=== PATIENT | female | born 1965 | race Two or more races ===

== ENCOUNTER 2017-03-18 19:18 | Emergency (ER) | payer OTHER ==
[~2017-03-18] VITALS: Ht 162.6 cm; Wt 75.3 kg
[2017-03-18] MEDS ORDERED: ULTRACET PO (21:57)
== END 2017-03-18 22:29 | disposition home or self-care (01) ==
LOC: ER 19:18
DX: M54.5 Low back pain (principal)

== ENCOUNTER 2017-03-19 14:23 | Outpatient (CLI) | payer OTHER ==
[~2017-03-19 14:23] MED LIST: ULTRACET PO
== END 2017-03-19 14:40 | disposition home or self-care (01) ==
LOC: MRI 14:23
DX: M54.5 Low back pain (principal)
CPT/HCPCS: 72148

== ENCOUNTER 2017-07-15 15:05 | Outpatient (CLI) | payer OTHER | END 2017-07-15 15:10 | disposition home or self-care (01) | LOC: MAMO-SONO 15:05 | DX: Z12.31 Encounter for screening mammogram for malignant neoplasm of breast (principal); N60.11 Diffuse cystic mastopathy of right breast; N60.12 Diffuse cystic mastopathy of left breast ==

== ENCOUNTER 2018-08-27 07:53 | Outpatient (CLI) | payer OTHER | END 2018-08-27 08:08 | disposition home or self-care (01) | LOC: LAB 07:53 | DX: N39.0 Urinary tract infection, site not specified (principal); E55.9 Vitamin D deficiency, unspecified; E78.49 Other hyperlipidemia; E03.8 Other specified hypothyroidism ==

== ENCOUNTER 2018-08-27 08:26 | Outpatient (CLI) | payer OTHER | END 2018-08-27 08:49 | disposition home or self-care (01) | LOC: MAMO-SONO 08:26 | DX: G93.5 Compression of brain (principal); Z12.31 Encounter for screening mammogram for malignant neoplasm of breast | CPT/HCPCS: 70551 ==

== ENCOUNTER 2018-10-30 10:42 | Emergency (ER) | payer OTHER ==
[~2018-10-30] VITALS: Ht 160 cm; Wt 68.9 kg
== END 2018-10-30 14:42 | disposition home or self-care (01) ==
LOC: ER 10:42
DX: M54.2 Cervicalgia (principal)

== ENCOUNTER 2019-12-14 08:37 | Outpatient (CLI) | payer OTHER | END 2019-12-14 08:42 | disposition home or self-care (01) | LOC: MAMO-SONO 08:37 | DX: Z12.31 Encounter for screening mammogram for malignant neoplasm of breast (principal); N60.21 Fibroadenosis of right breast; N60.22 Fibroadenosis of left breast ==

== ENCOUNTER 2022-01-18 11:00 | Outpatient (CLI) | payer OTHER | END 2022-01-18 11:05 | disposition home or self-care (01) | LOC: MAMO-SONO 11:00 | DX: N60.09 Solitary cyst of unspecified breast (principal) ==

== ENCOUNTER 2022-01-18 11:25 | Outpatient (CLI) | payer OTHER | END 2022-01-18 11:26 | disposition home or self-care (01) | LOC: LAB 11:25 | DX: E11.9 Type 2 diabetes mellitus without complications (principal); I11.9 Hypertensive heart disease without heart failure; D64.9 Anemia, unspecified; E55.9 Vitamin D deficiency, unspecified; E78.00 Pure hypercholesterolemia, unspecified; E03.9 Hypothyroidism, unspecified; Z12.11 Encounter for screening for malignant neoplasm of colon; N39.0 Urinary tract infection, site not specified ==

== ENCOUNTER 2023-03-28 08:07 | Outpatient (CLI) | payer OTHER | END 2023-03-28 08:20 | disposition home or self-care (01) | LOC: MAMO-SONO 08:07 | DX: N60.11 Diffuse cystic mastopathy of right breast (principal); N60.12 Diffuse cystic mastopathy of left breast; Z12.39 Encounter for other screening for malignant neoplasm of breast; Z12.31 Encounter for screening mammogram for malignant neoplasm of breast ==

== ENCOUNTER 2024-04-16 08:19 | Outpatient (CLI) | payer OTHER | END 2024-04-16 08:26 | disposition home or self-care (01) | LOC: MAMO-SONO 08:19 | PROVIDERS: ATTEND Obstetrics & Gynecology | DX: N60.11 Diffuse cystic mastopathy of right breast (principal); N60.12 Diffuse cystic mastopathy of left breast; Z12.31 Encounter for screening mammogram for malignant neoplasm of breast; Z12.39 Encounter for other screening for malignant neoplasm of breast ==

== ENCOUNTER → 2024-06-26 12:41 | Outpatient (CLI) | payer OTHER ==
[2024-06-26 14:08] LABS: HEMATOCRIT 37.1 % (36.0-45.00); HEMOGLOBIN 12.5 g/dL (12.0-15.00); MEAN CELL VOLUME 87.7 fL (80.00-100.00); MEAN CORPUSCULAR HEMOGLOBIN 29.6 pg (27.00-32.0); MEAN CORPUSCULAR HGB CONC 33.7 g/dl (32.0-36.0); PLATELET COUNT 333 K/uL (150-450); RED BLOOD COUNT 4.23 M/uL (4.00-6.00)
[2024-06-26 14:09] LABS: PH,URINE 6.5 (5.0-8.0); URINE APPEARANCE Clear; URINE BILIRRUBIN Negative (NEGATIVE); URINE BLOOD Negative; URINE COLOR Yellow; URINE GLUCOSE Negative (NEGATIVE); URINE KETONE Negative (NEGATIVE); URINE LEUKOCYTE Negative; URINE NITRATE Negative; URINE PROTEIN Negative (NEGATIVE); URINE UROBILINOGEN 0.2 E.U./dl
[2024-06-26 14:10] LABS: URINE BACTERIA 117.4 uL (0.0-1933); URINE EPITHELIAL CELLS 3.1 uL (0.0-38.8); URINE RBC 27.3 uL (0.0-20.8); URINE WBC 5.6 uL (0.0-23.2)
[2024-06-26 15:05] LABS: ALBUMIN 4.2 gm/dL (3.4-5.0); BILIRUBIN TOTAL 0.76 mg/dL (0.3-1.2); CALCIUM 9.4 mg/dL (8.5-10.1); CREATININE SERUM 0.88 mg/dL (0.55-1.02); FREE TRIODOTIRONINE 3.03 pg/ml (2.18-3.98); GFR 66.23; GLOBULINA 3.2 G/DL (2.4-3.5); POTASSIUM 4.15 mEq/L (3.5-5.1); T4 FREE 1.04 NG/ML (0.76-1.46); TOTAL PROTEIN 7.4 gm/dL (6.4-8.2); TSH 0.604 uIU/mL (0.358-3.74)
== END | disposition home or self-care (01) ==
LOC: LAB 12:41
PROVIDERS: ATTEND Internal Medicine
DX: E03.8 Other specified hypothyroidism (principal); E55.9 Vitamin D deficiency, unspecified; I11.9 Hypertensive heart disease without heart failure; E78.2 Mixed hyperlipidemia; D64.9 Anemia, unspecified; N39.0 Urinary tract infection, site not specified; Z13.1 Encounter for screening for diabetes mellitus; E11.9 Type 2 diabetes mellitus without complications; E87.8 Other disorders of electrolyte and fluid balance, not elsewhere classified; E03.9 Hypothyroidism, unspecified; Z13.220 Encounter for screening for lipoid disorders; Z13.228 Encounter for screening for other metabolic disorders

== ENCOUNTER 2024-06-26 13:37 | Outpatient (CLI) | payer OTHER | END 2024-06-26 13:47 | disposition home or self-care (01) | LOC: RAD 13:37 | PROVIDERS: ATTEND Otolaryngology | DX: J32.9 Chronic sinusitis, unspecified (principal) ==